=== PATIENT | male | born 1960 | race African-American/Black ===

== ENCOUNTER 2019-03-31 01:11 | Emergency (ER) | payer SELFPAY ==
[~2019-03-31] VITALS: Ht 167.6 cm; Wt 78.2 kg
[2019-03-31 01:21] VITALS: BP 194/138
[2019-03-31] MEDS ORDERED: OTHER BP MED PO (01:31)
[2019-03-31] MEDS ORDERED: AMLO-511 PO (01:31)
== END 2019-03-31 02:19 | disposition left against medical advice (07) ==
LOC: EMS 01:11
DX: Z53.21 Procedure and treatment not carried out due to patient leaving prior to being seen by health care provider (principal)

== ENCOUNTER 2019-12-11 18:07 | Emergency (ER) | payer MEDICAID ==
[~2019-12-11] VITALS: Ht 167.6 cm; Wt 72.7 kg
[~2019-12-11 18:07] MED LIST: AMLO5TAB9 PO; OTHER BP MED PO
[2019-12-11] MEDS ORDERED: HYDR-1475 PO (18:41)
[2019-12-11 19:56] VITALS: BP 164/83
[2019-12-11] MEDS ORDERED: LIDOCAINE/PF 1% 2 ML VIAL IM ONE (20:00)
[2019-12-11] MEDS ORDERED: CefTRIAXone SODIUM 1 GM/VIAL IM ONE (20:00)
[2019-12-11] MEDS ORDERED: MetroNIDAZOLE 500 MG TABLET PO ONE (20:00)
[2019-12-11] MEDS ORDERED: AZITHROMYCIN 250 MG TABLET PO ONE (20:00)
== END 2019-12-11 20:55 | disposition home or self-care (01) ==
LOC: EMS 18:09
DX: L73.9 Follicular disorder, unspecified (principal); I10 Essential (primary) hypertension; Z20.2 Contact with and (suspected) exposure to infections with a predominantly sexual mode of transmission; Z86.73 Personal history of transient ischemic attack (TIA), and cerebral infarction without residual deficits; Z79.899 Other long term (current) drug therapy; Z88.8 Allergy status to other drugs, medicaments and biological substances
CPT/HCPCS: 96372; 99283; J0696; J3490

== ENCOUNTER 2019-12-27 09:24 | Emergency (ER) | payer MEDICAID ==
[~2019-12-27] VITALS: Ht 167.6 cm; Wt 72.7 kg
[~2019-12-27 09:24] MED LIST changes: +HYDR-1475 PO; -OTHER BP MED PO
[2019-12-27] MEDS ORDERED: CLOTRIMAZOLE 1% 15 GM CREAM TP ONE (10:00)
[2019-12-27 11:11] VITALS: BP 175/99
== END 2019-12-27 11:34 | disposition home or self-care (01) ==
LOC: EMS 09:27
DX: B37.2 Candidiasis of skin and nail (principal); I10 Essential (primary) hypertension; F17.210 Nicotine dependence, cigarettes, uncomplicated; Z86.73 Personal history of transient ischemic attack (TIA), and cerebral infarction without residual deficits; Z88.8 Allergy status to other drugs, medicaments and biological substances
CPT/HCPCS: 99406